=== PATIENT | female | born 1975 | race Caucasian/White ===

== ENCOUNTER 2016-05-15 00:23 | Emergency (ER) | payer OTHER ==
[~2016-05-15] VITALS: Ht 165.1 cm; Wt 65.9 kg
[~2016-05-15 00:23] MED LIST: ALBUINHPP INH; NAPR500T PO; SYN.088T PO
[2016-05-15 00:42] VITALS: BP 124/84; PULSE 75; RESP 16; O2SAT 99
--- NOTE | 2016-05-15 01:10 | ED.REPORT ---
HPI-Extremity Problem Lower Date of Service May 15, 2016 ED Provider: Dr. Santy Bernard D.O. A 41 year old female with a history of hypothyroid and asthma presents to the ED with left calf swelling onset tonight. Three weeks ago her left knee popped while she was turning, since then pain and swelling has developed in the same knee. She also reports left calf pain and numbness in her toes onset tonight. Nursing Notes Stated Complaint: L LEG SWELLING Chief Complaint: Extremity Trauma Nursing Notes Reviewed: Yes Allergies: Coded Allergies: Gluten Flour (Verified Allergy, Unknown, 05/15/16) Uncoded Allergies: CITRUS (Allergy, Unknown, 05/15/16) Scheduled Albuterol-Expunged Drug, Do Not Renew! (Albuterol-Expunged Drug, Do Not Renew!) 90 Mcg Puff 2 PUFFS INH Q4-6HP Levothyroxine-Expunged Drug, Do Not Renew! (Synthroid-Expunged Drug, Do Not Renew!) 88 Mcg Tablet 88 MCG PO DAILYAC 0.088 MG = 88 MCG Naproxen-Expunged Drug, Do Not Renew! (Naprosyn-Expunged Drug, Do Not Renew!) 500 Mg Tablet 500 MG PO BID General Time Seen by MD: 01:09 Chief Complaint Other (Left calf swelling) Hx Obtained From: Patient Arrived By: Walk-in Onset Occurred: 1 - 4 hours ago Symptom Duration: Since onset Location: : Knee left: Leg left Quality: Painful Severity: Current: Moderate Severity: Maximum: Moderate Associated with: Reports: Numb extremities (Left toes), Denies: Fever Pertinent Negative: Relieved by nothing Immunizations: Unknown Recent Healthcare: No recent doctor visit Similar Sx Previous: No Past Medical History Past Medical History Asthma Back injury Hypothyroid Past Surgical History C4-C7 anterior cervical disk fusion Smoking History Unknown if Ever Smoker Social History Other Social History: Good social support Ambulatory Status Independent Review of Systems Constitutional: Denies: Fever Musculoskeletal: Reports: Extremity pain (Left calf), Extremity swelling (Left calf), Joint pain (Left knee), Joint swelling (Left knee) Neurologic: Reports: Numbness (Left toes) Complete sys rev & neg: except as marked. Respiratory: Denies: Non-productive cough, Shortness of breath GI: Denies: Vomiting Physical Exam Initial Vital Signs Vital Signs (First) Date Time Temp Pulse Resp B/P Pulse Ox O2 Delivery O2 Flow Rate FiO2 05/15/16 00:42 36.5 75 16 124/84 99 Room Air Initial VS: Reviewed Head / Eyes: Atraumatic, Normocephalic ENT: Conjunctiva normal, No scleral icterus Neck: Supple, Non-tender, Full range of motion Respiratory: Breath sounds normal, Clear to auscultation Skin: Warm, Dry, No cyanosis Neurologic: Alert, Oriented, Nonfocal Psychiatric: Mood/affect normal, Behavior normal, Normal thought content Lower Extremity / Pelvis / MS: Full range of motion, Neurologic intact, Vascular intact Left Leg / Calf: Positive: Swelling present... (Non-pitting edema from ankle to mid calf), Tenderness present... General/Constitutional: Awake, Alert, No acute distress Interpretation & Diagnostics US DVT CONCLUSION: No evidence of left lower extremity deep venous thrombosis. Transmitted to ED by Emory Suarez M.D. at 05/05/2016 - 2:32:12 AM PST Lab Results Interpretation Test 05/15/16 02:19 D-Dimer 1.9mg/L (<0.50) Hold Lao Top Tube Received (Received) Re-Eval/Medical Decision Med Decision/Clinical Course D-dimer elevated. Ultrasound indicated. No DVC T seen on ultrasound. Bounding pedal pulses. No evidence of acute arterial insufficiency. Recommend NSAIDs or acetaminophen for pain. Outpatient follow-up in a week. If symptoms persist will need a repeat ultrasound. This was all shared with Jacquie. Source of Hx: Old records Re-Evaluation/Progress : Time of Eval: 02:18 Patient Status: Condition improved Re-Evaluation/Progress Note: Discussed with patient US results, diagnosis, and plan for discharge. Follow-up and return to the ER instructions given. Patient agrees with plan for care and all questions were addressed. Counseled Regarding: Diagnosis, Need for follow-up, When/why to return to ED Discharge & Departure Impression: Primary Impression: Left leg swelling Disposition: Home Discharge Condition All VS Reviewed: Yes Condition: Stable Patient Instructions: Leg Edema (ED), Crutch Instructions (ED) Additional Instructions: Thank you for entrusting us with your care. Your exam today was reassuring. The ultrasound did not show evidence of a blood clot. Please take Motrin or Tylenol as directed for pain. Keep your foot elevated as much as possible. Call your primary care provider tomorrow for a follow-up appointment in the next week if symptoms persist. Return to the ER with any new or worsening symptoms. Referrals: Raysa Jorgensen (PCP) Anita Attestation Portions of this note were transcribed by Edilma Atwood. I, Dr. Bernard, personally performed the history, physical exam, and medical decision-making; I reviewed and confirmed the accuracy of the information in the transcribed note. Signed by: Anita Anderson, 05/15/2016, 03:00 copies to: Raysa Jorgensen Todd P DO May 15, 2016 01:10 EDILMA ATWOOD May 15, 2016 01:22
[2016-05-15 02:32] VITALS: BP 131/82; PULSE 71; RESP 16; O2SAT 99
--- NOTE | 2016-05-15 08:08 | DRSVH ---
PROCEDURE: US VEINOUS LEG DUPLEX UNILATERAL, LEFT INDICATIONS: left calf and leg swelling, recent knee injury TECHNIQUE: Real-time imaging, as well as color and pulse Doppler interrogation, were performed of the lower extr emity deep veins from the inguinal ligament to the popliteal fossa. COMPARISON: None. FINDINGS: The deep veins are normally compressible, and free of intraluminal thrombus. Color and pu lse Doppler demonstrate normal phasic intraluminal flow. There is normal augmentation response to di stal compression maneuver. IMPRESSION: No evidence of left lower extremity deep vein thrombosis. Dictated by: Ruth Cabello MD, PhD on 05/15/2016 at 8:06 Approved by: Ruth Cabello MD, PhD on 05/15/2016 at 8:06
[2016-08-13] MEDS ORDERED: LEVO112T4 PO (08:56)
[2016-08-13] MEDS ORDERED: BENEDRYL PO (08:56)
[2016-08-13] MEDS ORDERED: FEXO180T85 PO (08:56)
[2016-08-13] MEDS ORDERED: MOME17SP10 NASAL (08:56)
[2016-08-13] MEDS ORDERED: ALBU8.5H2 INHALATION (08:56)
[2016-08-13] MEDS ORDERED: CETI10CA PO (08:56)
== END 2016-05-15 02:33 | disposition home or self-care (01) ==
LOC: SED 00:23
DX: M79.89 Other specified soft tissue disorders (principal); M79.662 Pain in left lower leg; R20.0 Anesthesia of skin; J45.909 Unspecified asthma, uncomplicated; E03.9 Hypothyroidism, unspecified; Z91.018 Allergy to other foods

== ENCOUNTER 2016-05-16 16:00 | Emergency (ER) | payer OTHER ==
[~2016-05-16] VITALS: Ht 165.1 cm; Wt 65.9 kg
[2016-05-16 16:17] VITALS: BP 109/77; PULSE 76; RESP 18; O2SAT 99
--- NOTE | 2016-05-16 18:09 | ED.REPORT ---
HPI-Extremity Problem Lower Date of Service May 16, 2016 ED Provider: Santy Bernard DO Ms. Hernandez is a 41 y/o woman who presents today for left left swelling and pain. She was seen yesterday and ultrasound did not show a DVT. Since her previous visit, she has noticed new heat and worsening swelling and pain. Tried doing RICE without improvement. She even wore a compression stocking and knee support. The pain is in the knee, behind the knee, the side of her knee, and in the calf. It is sharp, stabbing and tenderness to touch. Can't bend leg in the back. "Knee keeps popping and wanting to give out." No other imaging than US done yesterday. Tingling in feet and toes on left side. No fever, chills, weight changes, other joint swelling, or generalized weakness. No control pills. No recent travel or surgeries. No family history of clotting disorders. No personal history of clots. It is worse with standing or walking. No relieving factors. Twisted knee 3 weeks ago. She had a tubal ligation and her last period was yesterday. Nursing Notes Stated Complaint: FOLLOW UP FOR SWOLLEN LEG Chief Complaint: Extremity Trauma Nursing Notes Reviewed: Yes Allergies: Coded Allergies: Gluten Flour (Verified Allergy, Unknown, 05/16/16) Uncoded Allergies: CITRUS (Allergy, Unknown, 05/15/16) Scheduled Albuterol-Expunged Drug, Do Not Renew! (Albuterol-Expunged Drug, Do Not Renew!) 90 Mcg Puff 2 PUFFS INH Q4-6HP Levothyroxine-Expunged Drug, Do Not Renew! (Synthroid-Expunged Drug, Do Not Renew!) 88 Mcg Tablet 88 MCG PO DAILYAC 0.088 MG = 88 MCG Naproxen-Expunged Drug, Do Not Renew! (Naprosyn-Expunged Drug, Do Not Renew!) 500 Mg Tablet 500 MG PO BID General Time Seen by MD: 18:06 Chief Complaint Other (left left pain and swelling) Hx Obtained From: Patient Arrived By: Walk-in Recent Healthcare: Recent doctor visit Risk-Extremity Prob Lower Well's Criteria for DVT Local tend d-vein sys (1) Well's DVT Score: 1-2 pts (mod risk 33%) Past Medical History Past Medical History Asthma Back injury Hypothyroid Past Surgical History C4-C7 anterior cervical disk fusion Reports: Tubal ligation Smoking History Never Smoker Social History Other Social History: Good social support Ambulatory Status Independent Review of Systems Constitutional: Denies: Chills, Fever Musculoskeletal: Reports: Joint pain, Joint swelling Skin: Denies Bruising, Denies Rash, Denies Unexplained bruises Neurologic: Denies: Bladder dysfunction, Bowel dysfunction, Headache, Vision change Eyes: Denies: Blurred bilateral, Discharge bilateral, Eye pain bilateral Ears / Nose / Throat: Denies: Hearing loss bilateral Respiratory: Denies: Shortness of breath Cardiovascular: Denies: Chest pain GI: Denies: Abdominal pain, Diarrhea, Vomiting Female: Denies: Dysuria Hematologic: Denies Bruising Endocrine: Denies: Weight gain, Weight loss Physical Exam Initial Vital Signs Vital Signs (First) Date Time Temp Pulse Resp B/P Pulse Ox O2 Delivery O2 Flow Rate FiO2 05/16/16 16:17 36.7 76 18 109/77 99 Room Air Initial VS: Reviewed, Vital signs normal General/Constitutional: Well-developed, Well-nourished Head / Eyes: Atraumatic, Normocephalic, PERRL Respiratory: Breath sounds normal, Clear to auscultation, No respiratory distress Cardiovascular: Regular rate & rhythm, Heart sounds normal, Intact distal pulses Neurologic: Alert, Oriented, Nonfocal Psychiatric: Mood/affect normal, Behavior normal, Normal thought content Left Knee: Positive: Joint effusion present, Medial collat lig tender, Swelling present... (Mild), Tenderness present... (Moderate), Warmth present, Negative: Anterior drawer test pos, Deformity present, Rachel's test positive, Lateral collat lig tender, Neuro deficit present, Open fracture present, Patella dislocated, Patella tender, Pulses distal absent, Pulses distal decreased Left Leg / Calf: Positive: Sofiya's sign positive, L calf > R calf, Swelling present... (Mild), Tenderness present... (Moderate), Negative: Ecchymosis present, Erythema present, Open fracture present, Warmth present Interpretation & Diagnostics Interpretation & Diagnostics: Left knee x-ray shows a small non-specific knee effusion. US venous duplex of left leg: FINDINGS: The deep veins are normally compressible, and free of intraluminal thrombus. Color and pulse Doppler demonstrate normal phasic intraluminal flow. There is normal augmentation response to distal compression maneuver. Complex fluid collection measuring 3.9 x 1.1 x 2.2 cm noted in the left popliteal fossa likely represents a Jerez's cyst. IMPRESSION: No evidence of deep vein thrombosis involving the left lower extremity. Dictated by: Ruth Cabello MD, PhD on 05/16/2016 at 20:37 Approved by: Ruth Cabello MD, PhD on 05/16/2016 at 20:37 Lab Results Interpretation Result Diagram: 05/16/16 1846 05/16/16 1846 Test 05/16/16 18:46 White Blood Count 7.1th/mm3 (3.8-10.1) Red Blood Count 4.16mil/mm3 (3.90-5.20) Hemoglobin 12.5g/dL (12.0-15.6) Hematocrit 38.0% (35.0-46.0) Mean Corpuscular Volume 91.3fL (81-100) Mean Corpuscular Hemoglobin 30.0pg (27.0-35.0) Mean Corpuscular Hemoglobin Concent 32.9% (32.0-37.0) Red Cell Distribution Width 13.3% (12.3-15.4) Platelet Count 317bil/L (150-400) Neutrophils (%) (Auto) 61.2% (40-74) Lymphocytes (%) (Auto) 21.6% (14-46) Monocytes (%) (Auto) 12.7% (4-12) Eosinophils (%) (Auto) 4.1% (0-5) Basophils (%) (Auto) 0.4% (0-3) Sodium Level 141mEq/L (134-144) Potassium Level 4.5mEq/L (3.5-5.2) Chloride Level 104mEq/L (97-108) Carbon Dioxide Level 25mmol/L (18-29) Blood Urea Nitrogen 15mg/dL (6-24) Creatinine 0.62mg/dL (0.57-1.00) Estimat Glomerular Filtration Rate 152mL/min (>59) Glucose Level 98mg/dL (60-99) Calcium Level 9.2mg/dL (8.5-10.1) Total Bilirubin 0.2mg/dL (0.0-1.2) Aspartate Amino Transf (AST/SGOT) 15U/L (0-50) Alanine Aminotransferase (ALT/SGPT) 11U/L (0-32) Alkaline Phosphatase 72U/L (25-150) Total Protein 7.4g/dL (6.4-8.4) Albumin 3.9g/dL (3.4-5.0) Hold Lao Top Tube Received (Received) Re-Eval/Medical Decision Med Decision/Clinical Course 1. left leg pain and edema -CBC does not show signs of infection -CMP WNL -knee x-ray shows a small non-specific effusion -US shows a likely ruptured Jerez's cyst. She likely injured her knee when she twisted it 3 weeks ago. Discharge & Departure Impression: Primary Impression: Jerez's cyst of knee Laterality: left Qualified Code: M71.22 - Synovial cyst of popliteal space [ Jerez], left knee Ruled Out: DVT (deep venous thrombosis) Disposition: Home Discharge Condition All VS Reviewed: Yes Condition: Stable Patient Instructions: Jerez's Cyst (ED) Additional Instructions: The ultrasound done today shows a ruptured Jerez's cyst. Use crutches and keep your left leg non-weight bearing for 1 week. Also, wear the knee immobilizer. Take hydrocodone-APAP 5mg/325 mg 1-2 tablet by mouth every 6 hours as needed for pain. Do not take with Tylenol, alcohol, other drugs, or while driving. Follow up with orthopedics. Referrals: Raysa Jorgensen (PCP) [facility] 1 Week Attending Statement I took a history of former physical. I concur with the note. Ruptured Jerez cyst most likely related to a knee injury from 3 weeks ago. DVT ruled out. We repeated the ultrasound she has increasing symptoms and elevated d-dimer. I have seen calf DVTs missed on initial ultrasound however I think now we have the definitive diagnosis. Short course of opiates and crutches because she has presented significant pain. I find no signs of infection. Orthopedic intervention possible steroid injection recommended. copies to: Raysa Jorgensen Marissa L DO May 16, 2016 18:09 Santy Bernard DO May 18, 2016 18:55
[2016-05-16 18:53] LABS: BASOPHILS % (AUTO) 0.4 % (0-3); EOSINOPHILS % (AUTO) 4.1 % (0-5); MONOCYTES % (AUTO) 12.7 % (4-12); Mean Corpuscular Volume 91.3 fL (81-100); NEUTROPHILS % (AUTO) 61.2 % (40-74); Platelet Count 317 bil/L (150-400)
--- NOTE | 2016-05-16 19:22 | DRSVH ---
PROCEDURE: X-RAY LEFT KNEE, THREE VIEWS ([id number]) INDICATIONS: worsening knee swelling, pain and warmth TECHNIQUE: 3 views of the knee were acquired. COMPARISON: None. FINDINGS: Bones: No fractures or dislocations. No suspicious bony lesions. Soft tissues: Small nonspecific joint effusion is noted. No suspicious soft tissue calcifications. IMPRESSION: No fracture. No osseous lesion. If there are persistent symptoms or clinical suspicion for pathology, then repeat radiographs or advanced imaging (CT, MRI or bone scan) should be considered for further evaluation. Small nonspecific knee joint effusion. Dictated by: Ruth Cabello MD, PhD on 05/16/2016 at 19:20 Approved by: Ruth Cabello MD, PhD on 05/16/2016 at 19:20
--- NOTE | 2016-05-16 20:38 | DRSVH ---
PROCEDURE: US VEINOUS LEG DUPLEX UNILATERAL, LEFT INDICATIONS: worsening left leg swelling and pain TECHNIQUE: Real-time imaging, as well as color and pulse Doppler interrogation, were performed of the lower extr emity deep veins from the inguinal ligament to the popliteal fossa. COMPARISON: [facility], US, US VENOUS LEG DPLX UNI LT, 05/15/2016, 2:02. FINDINGS: The deep veins are normally compressible, and free of intraluminal thrombus. Color and pu lse Doppler demonstrate normal phasic intraluminal flow. There is normal augmentation response to di stal compression maneuver. Complex fluid collection measuring 3.9 x 1.1 x 2.2 cm noted in the left po pliteal fossa likely represents a Jerez's cyst. IMPRESSION: No evidence of deep vein thrombosis involving the left lower extremity. Dictated by: Ruth Cabello MD, PhD on 05/16/2016 at 20:37 Approved by: Ruth Cabello MD, PhD on 05/16/2016 at 20:37
[2016-05-16] MEDS ORDERED: _HYDROcodone/APAP 5-325 mg Tablet PO PRN (20:45)
[2016-05-16 21:39] VITALS: BP 110/78; PULSE 95; RESP 20; O2SAT 98
[2016-08-13] MEDS ORDERED: FEXO180T85 PO (08:56)
[2016-08-13] MEDS ORDERED: LEVO112T4 PO (08:56)
[2016-08-13] MEDS ORDERED: BENEDRYL PO (08:56)
[2016-08-13] MEDS ORDERED: CETI10CA PO (08:56)
[2016-08-13] MEDS ORDERED: MOME17SP10 NASAL (08:56)
[2016-08-13] MEDS ORDERED: ALBU8.5H2 INHALATION (08:56)
== END 2016-05-16 21:54 | disposition home or self-care (01) ==
LOC: SED 16:00
DX: M71.22 Synovial cyst of popliteal space [Baker], left knee (principal); X50.9XXA Other and unspecified overexertion or strenuous movements or postures, initial encounter; Y93.89 Activity, other specified; Y92.89 Other specified places as the place of occurrence of the external cause; Y99.8 Other external cause status; J45.909 Unspecified asthma, uncomplicated; E03.9 Hypothyroidism, unspecified; Z91.018 Allergy to other foods

== ENCOUNTER 2016-08-14 13:50 | Day surgery (SDC) | payer OTHER ==
[~2016-08-14] VITALS: Ht 165.1 cm; Wt 66.9 kg
[2016-08-14] VITALS (8 sets, daily range): BP systolic 109–123; BP diastolic 69–84; PULSE 65–92; RESP 12–16; O2SAT 97–100
[~2016-08-14 13:50] MED LIST changes: +ALBU8.5H2 INHALATION; -ALBUINHPP INH; +BENEDRYL PO; +CETI10CA PO; +CeFAZolin Inj 2 GM in IV Premix 1 EACH IV SCH; +FEXO180T85 PO; +LEVO112T4 PO; +MOME17SP10 NASAL; -NAPR500T PO; -SYN.088T PO
[2016-08-14] MEDS ORDERED: Propofol 10,000 mCg/mL 20 mL Inj ONE (13:51)
[2016-08-14] MEDS ORDERED: Dexamethasone 4 mg/mL Inj ONE (13:51)
[2016-08-14] MEDS ORDERED: Ondansetron 2 mg/mL 2 mL Inj ONE (13:51)
[2016-08-14] MEDS ORDERED: fentaNYL-PF 50 mCg/mL 2 mL Inj ONE (13:51)
[2016-08-14] MEDS: Lactated Ringer's 1,000 ML IV SCH ×2 (14:23→16:44)
--- NOTE | 2016-08-14 16:39 | PCM.ORTHOP ---
Orthopedic Operative Report Date of Service: Aug 14, 2016 Pre Operative Diagnosis Left knee medial meniscus tear, chondromalacia Post Operative Diagnosis Same Procedure Left knee arthroscopy, medial meniscal debridement, chondroplasty, partial synovectomy Surgeon Surgeon: Benjamin Pedro MD Assistants: None Indication for Procedure Left knee medial meniscus tear Findings Per dictation Details of Procedure INDICATIONS:Jacquie Recinos is a 41 year old female who has had a history of left knee pain. The patient has failed conservative management. 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 MRI was obtained which reveals medial meniscus tear. The patient has had persistent symptoms and is now brought to the operating room for arthroscopy. The risks, benefits, and alternatives of surgery were discussed with the patient. The risks included but were not limited to infection, bleeding, damage to vessels and nerves, loss of motion, continued pain, re-tear of the meniscus, deep venous thrombosis, and complications due to anesthesia including nerve injury, myocardial infarction, stroke, , etc. The patient stated understanding of the nature of the surgical procedure and gave written and verbal consent to proceed. PROCEDURE: The patient was brought to the operating room and placed supine on the operating room table. After the administration of general anesthesia the patient was placed in the supine position. Examination of the knee revealed no evident instability with a trace effusion. All prominences were padded with appropriately and neurovascular structures protected. The left knee was confirmed to be the appropriate site following surgical time out. The left lower extremity was examined under anesthesia. Range of motion was 0-135 degrees. There was no varus or valgus or anterior or posterior instability. The left lower extremity was then prepped and draped in the usual fashion. Sterile prep and drape was then undertaken of the knee. The knee joint was injected with 20 ccs of 1% Lidocaine, along with 3 ccs of 1 % lidocaine in the medial and lateral portal sites respectively. A standard anterolateral parapatellar stab wound was created. The knee joint was entered with a blunt- tipped obturator, followed by the 30-degree video arthroscope. An anteromedial portal was established under arthroscopic control. A routine arthroscopic survey was performed. The patellofemoral joint showed grade 1/2 chondromalacia which was debrided down to stable tissue with a shaver. The medial joint space was then entered. The articular surfaces showed grade 1 chondromalacia. The medial meniscus appeared to be stable and increased excursion than typical. Medial extrusion was not noted.. The shaver and the cutting instruments were inserted, and debridement of the meniscus back to healthy tissue was then undertaken. The ACL and PCL were noted to be intact. The lateral joint space was then entered. The articular surfaces were intact with grade 1 chondromalacia. There was a degenerative fraying to the inner aspect of the lateral meniscus that was stable to probing. Moderate synovitis was noted anteriorly in the medial and lateral compartment as well as suprapatellar and debrided with a shaver. Pieces of synovitis was noted underneath the meniscus in the lateral compartment which was debrided with a shaver. The knee was irrigated with an additional 2 liters of lactated Ringer's solution. Excess fluid was drained. The portals were closed with 3-0 nylon as well as xeroform. The knee was injected with 20 mL of 0.5% ropivacaine. A dry sterile dressing was applied, followed by an RK hose, soft roll, and DES bandage. The patient was awakened in the operating room and transported to the recovery room in satisfactory condition. The patient appeared to tolerate the procedure well. At the completion of surgery the patient had soft compartments , palpable pulses, and brisk capillary refill. There were no complications noted. Please keep dressing clean dry and intact. Do not remove dressing until follow- up in clinic. If the dressing become soaked, you may remove the outer gauze and placed Band-Aids on the wounds. You may weight-bear as tolerated and maintain motion of your knee by bending it daily. You will follow up in clinic in 10-14 days for suture removal, and placement of new Steri-Strips. You will follow-up with me in clinic, and we will start physical therapy if needed. You will follow-up with me at 6 weeks postop and 12 weeks postop and will be released after that if improved. Please keep the affected extremity elevated when possible. Please take aspirin as prescribed. You may use ice and/ or heat as needed for comfort. (preferably ice during the first 48-72 hours) Please feel free to call with any further questions, comments, and/or concerns. Grafts, Implants: None Complications There were no periprocedural complications identified. Condition Stable Anesthetic Administered: GA Catheters: None Output, Estimated Blood Loss: 5 Blood Admin during surgery: No Surgical Specimen Removed: No Specimen sent to Pathology: No copies to: Benjamin Pedro MD, Christopher L MD Aug 14, 2016 16:38 Benjamin Pedro MD Aug 14, 2016 16:38
[2016-08-14] MEDS ORDERED: HYDROcodone-APAP 5-325 mg Tablet PO PRN (16:40)
[2016-08-14] MEDS ORDERED: Ketorolac 15 mg/mL Inj IVPUSH ONE (16:40)
[2016-08-14] MEDS ORDERED: Ropivacaine-PF 0.5% 30 mL Inj INJ ONE (17:09)
--- NOTE | 2016-08-14 17:35 | PCM.HPANE ---
Patient Data Date of Service: Aug 14, 2016 (1640) Surgeon Admitting Provider: Attending Provider:Benjamin Pedro MD Primary Care Physician:Raysa Jorgensen Other Provider:Radha Franco Anesthesia Reason for Visit Left Knee Meniscal Tear Ht/WT & BMI Height (Feet): 5 Height (Inches): 5 Weight (Kilograms): 66.9 Body Mass Index 24.00 Allergies Coded Allergies: Gluten Flour (Verified Allergy, Unknown, UNKNOWN, 08/13/16) kiwi (Verified Allergy, Unknown, UNKNOWN, 08/13/16) Uncoded Allergies: CITRUS (Allergy, Unknown, UNKNOWN, 08/13/16) Past Anesthesia History Anesthesia History: Denies:: Abnormal Airway, Anesthesia Reactions, Difficult Intubation, Fam Anesthesia Reaction, Fam Malignant Hypertherm, Malignant Hyperthermia Diabetes History Hx Diabetes?: No MRSA MRSA: No Medications Home Meds Incl Beta Marilyn: No Reported Medications Cetirizine HCl (Zyrtec)10 Mg [id number] Mg PO HS #30 CAPSULE Ref 0 08/13/16 Albuterol HFA (Proair HFA)8.5 Gm Hfa.aer.ad2 Puffs INHALATION Q4H PRN PRN #1 INHALER 08/13/16 Mometasone Furoate 50 Mcg [place].[email or web address] Sprays NASAL DAILY 08/13/16 Levothyroxine 112 Mcg [id number] Mcg PO DAILY For Thyroid Replacement Ref 0 08/13/16 [Benedryl] No Conflict Check25 Mg PO Q4-6H PRN PRN 08/13/16 Fexofenadine (Nakia Allergy)180 Mg [id number] Mg PO DAILY Ref 0 08/13/16 Discontinued Reported Medications Naproxen-Expunged Drug, Do Not Renew! (Naprosyn-Expunged Drug, Do Not Renew!) 500 Mg [id number] Mg PO BID 10/20/12 Levothyroxine-Expunged Drug, Do Not Renew! (Synthroid-Expunged Drug, Do Not Renew!)88 Mcg Zoxtml93 Mcg PO DAILYAC 0.088 MG = 88 MCG 10/20/12 Albuterol-Expunged Drug, Do Not Renew! 90 Mcg Puff2 Puffs INH Q4-6HP 10/20/12 History History of ENT Problems?: Yes HEENT History: Positive for:: Sinus Problem (SEASONAL/ENVIRONMENTAL ALLERGIES) Denies:: Abnormal Airway Difficult Intubation Dysphagia Hearing Problem Hx of Heart Problems?: Yes Cardiovascular History: Denies:: AICD Atrial Fibrillation Chest Pain Congestive Heart Failure Heart Murmur Hypertension Valvular Heart Disease Other Cardiac History: C/OF BRUISING EASILY Hx of Respiratory Problem?: Yes Respiratory History: Positive for:: Asthma Use of Inhalers / NEBS Denies:: COPD Cough Hemoptysis Pneumonia Tuberculosis Use of C-PAP Machine Hx Neurologic Problems?: Yes Neurological History: Positive for:: Headaches Denies:: CVA Dementia Hx of GI Problems?: Yes Gastrointestinal History: Denies:: Cirrhosis Diverticulitis Gastroesphageal Reflux Hiatal Hernia Rectal Bleeding Other GI Pertinent History: C/OF INTERMITTANT ABD PAIN (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 (RASH) Denies:: Pressure Ulcers Hx Musculoskeletal Problems?: Yes Musculoskeletal History: Positive for:: Back Injury (C/OF NECK PAIN, THORACIC SPINE PAIN) Musculoskeletal Trauma (LT KNEE MENISCAL TEAR=CURRENT PROBLEM) Denies:: Joint Replacement Hx of Psycho/Social Problems?: No Psycho Social History: Denies:: Anxiety Hx Depression Hx Surgeries?: Yes (C4-7 FUSION,TUBAL LIGATION) Hx Any Other Health Problems?: Yes Other History: Positive for:: Thyroid Disease Denies:: Cancer Endocrine Disease Hospitalization History Blood Transfusions: Denies:: Blood Transfusions Hx Diabetes: No Hx Alcohol Use: Yes (RARE)Hx Substance Use: No Smoking Status: Never Smoker Have You Smoked inLast 12 mo: No Stop/Bang S-Snoring: Do You Snore Loudly: No T-Tired: feel tired, fatigued: Yes O-Obsered: Observed not breath: No P-Blood Pressure: treated: No B- Body Mass Index > 35 kg/m2: No A- Age over 50: No N- Neck Large Circumference: No G- Gender Male: No ABDULKADIR Total Score: 1 ABDULKADIR Risk Assessment: Low Risk, <3 Yes Risk Assessment Category Category 1A: Patient has history of documented sleep apnea, and HAS NOT received any narcotic, sedative or anesthesia administration during this stay. Category 1B: Patient has history of documented sleep apnea, and HAS received any narcotic , sedative or anesthesia administration during this stay Category 2: Patient has SUSPECTED Obstructive Sleep Apnea, and HAS received any narcotic , sedative or anesthesia administration during this stay. Category 3: Patient has SUSPECTED Obstructive Sleep Apnea and HAS NOT received narcotic, sedative or anesthesia administration during this stay. Category 4: Outpatient in Procedural Areas with known sleep apnea or who screen positive for High Risk via the STOP/BANG questionnaire. Exam Exam Vital Signs Vital Signs Date Time Temp Pulse Resp B/P Pulse Ox O2 Delivery O2 Flow Rate FiO2 08/14/16 14:24 37.2 74 16 109/71 98 Room Air General Appearance: Alert, Oriented X3 HEENT/AIRWAY: MP 1 Lungs: Clear to Auscultation Heart: Exam Unremarkable Meds/Labs/Diagnostics Admission Meds Current Medications Lactated Ringer's 1,000 ml @ 120 mls/hr Q8H20M IV Last administered on 16:44; Start 08/14/16 at 05:00; Stop 08/14/16 at 13:24; Status DC Cefazolin Sodium/ Dextrose/Premix (Ancef Inj / D5W 50mL/IV Premix) 50 ml @ 100 mls/hr PREOP IV Last administered on 08/14/16 16:49; Start 08/14/16 at 06:00; Stop 08/14/16 at 17:00; Status DC Lidocaine HCl (Xylocaine 1% Inj) 20 ml STK-MED ONCE INJ Last administered on 17:09; Start 08/14/16 at 17:09; Stop 08/14/16 at 17:10; Status DC Ropivacaine (Naropin 0.5% Inj) 30 ml STK-MED ONCE INJ Last administered on 08/14 17:09; Start 08/14/16 at 17:09; Stop 08/14/16 at 17:10; Status DC Plan Impression Patient chart reviewed, patient interviewed and anesthestic plan with risks, benefits, and alternatives discussed, and informed consent obtained. NPO Status: 08/14 ASA Physical Status: ASA1 Normal Healthy Anesthetic Plan: GA Bene/Risks/Altern/Consents: Yes HP Complete Prior to Induction: Yes Kiran Acevedo MD Aug 14, 2016 17:35
[2016-08-14] MEDS ORDERED: Lactated Ringer's 1,000 ML IV SCH (17:36)
[2016-08-14] MEDS ORDERED: Lactated Ringer's 500 ML IV PRN (17:36)
--- NOTE | 2016-08-14 17:36 | PCM.ANEP1 ---
Post Anesthesia Phase 1 PACU Phase 1 Assessment Date of Service: Aug 14, 2016 (1640) Vital Signs 36.3, 87, 8, 121/73, 100% Vital Signs Date Time Temp Pulse Resp B/P Pulse Ox O2 Delivery O2 Flow Rate FiO2 08/14/16 14:24 37.2 74 16 109/71 98 Room Air Anesthetic Administered: GA Level of Alertness: Awake, talking NORTH's with Equal Strength: Yes Pain: No Nausea or Vomiting: No Oxygen Delivery: Room Air Lungs: Clear to Auscultation Dermatome Level: Full Sensation Summary UNEVENTFUL GA Kiran Acevedo MD Aug 14, 2016 17:36
--- NOTE | 2016-08-14 17:36 | PCM.ANEP2 ---
Post Anesthesia Evaluation ASA/CMS Post Anesthesia VS in Patient's Normal Range?: Yes Resp Stable; Airway Patent?: Yes CV Function & Hydration Stable: Yes Mental Status Recovered?: Yes Pain control Satisfactory?: Yes N/V Control Satisfactory?: Yes Kiran Acevedo MD Aug 14, 2016 17:36
[2016-08-14] MEDS ORDERED: EPHEDrine Sulfate 50 mg/mL Inj IVPUSH PRN (17:40)
[2016-08-14] MEDS ORDERED: fentaNYL-PF 50 mCg/mL 2 mL Inj IVPUSH PRN (17:40)
[2016-08-14] MEDS ORDERED: MetoCLOpramide 5 mg/mL 2 mL Inj IVPUSH PRN (17:40)
[2016-08-14] MEDS ORDERED: HYDROmorphone 1 mg/mL Inj IVPUSH PRN (17:40)
[2016-08-14] MEDS ORDERED: Dexamethasone 4 mg/mL Inj IVPUSH PRN (17:40)
[2016-08-14] MEDS ORDERED: Phenylephrine 10,000 mCg/mL Inj IVPUSH PRN (17:40)
[2016-08-14] MEDS ORDERED: Ondansetron 2 mg/mL 2 mL Inj IVPUSH PRN (17:40)
== END 2016-08-14 23:59 | disposition home or self-care (01) ==
LOC: SAS 13:50
PROVIDERS: ATTEND Orthopaedic Surgery
DX: M23.262 Derangement of other lateral meniscus due to old tear or injury, left knee (principal); M22.42 Chondromalacia patellae, left knee; J45.909 Unspecified asthma, uncomplicated; R51 Headache; Z79.899 Other long term (current) drug therapy; M65.862 Other synovitis and tenosynovitis, left lower leg
CPT/HCPCS: 29875; 29881; J0690; J2795; J7120